=== PATIENT | male | born 1955 | race African-American/Black ===

== ENCOUNTER 2021-02-18 10:55 | Inpatient (IN) | payer OTHER ==
[~2021-02-18] VITALS: Ht 165.1 cm; Wt 108.9 kg
[2021-02-18 10:56] VITALS: BP 130/93
[2021-02-18 11:18] LABS: HEMATOCRIT 37.7 % (42.0-52.0); HEMOGLOBIN 12.4 gm/dL (14.0-18.0); MCH 27.3 pg (26.0-34.0); MCHC 32.9 g/dL (28.0-37.0); MCV 83.1 fL (80.0-100.0); PLATELET COUNT 220 thou/uL (150-400); RBC 4.54 mil/uL (4.50-6.00); RDW 16.6 % (10.5-14.5); WBC 9.9 thou/uL (4.0-11.0)
[2021-02-18 11:52] LABS: ABSOLUTE NEUTROPHILS 7.6 thou/uL (1.4-8.2); PLATELET ESTIMATE NORMAL
--- NOTE | 2021-02-18 12:24 | EKG ---
[place] [address] [facility] [place] [address] ELECTROCARDIOGRAM REPORT Name: HERNANDO GUPTA [id number] Admission: 02/18/21 Attend Phys: Discharge: Date of : 55 Report #: [id number] [facility] ED Test Date: 2021-02-18 Test Time: 11:12:30 Pat Name: HERNANDO GUPTA Department: Room: Gender: M Claim Administrator: JUANCARLOS : 1955 Requested By: Jenna Mabry Order Number: [id number] MD: Shubham Carlos Measurements Intervals [place]ock Rate: 84 P: 51 NC: 152 QRS: -31 QRSD: 110 T: 67 QT: 404 QTc: 478 Interpretive Statements Sinus rhythm Abnormal R-wave progression, late transition Borderline prolonged QT interval No previous ECG available for comparison Electronically Signed On 02-18-2021 12:24:48 CDT by Shubham Carlos [email or web address] <ELECTRONICALLY SIGNED> By: Shubham Carlos MD, [facility] 02/18/21 1224 1112 1112 Shubham Carlos MD, FACC /EPI
[2021-02-18 15:01] LABS: CALCIUM 8.6 mg/dL (8.5-10.1)
[2021-02-18 15:11] LABS: ALBUMIN 3.2 g/dL (3.4-5.0); MAGNESIUM 1.8 mg/dL (1.8-2.4); TOTAL PROTEIN 8.6 g/dL (6.4-8.2); TROPONIN-I 0.14 ng/mL (<0.06)
[2021-02-18 15:23] LABS: POTASSIUM 5.7 mmol/L (3.5-5.1)
[2021-02-18 15:25] LABS: PHOSPHORUS 4.2 mg/dL (2.5-4.9); TOTAL BILIRUBIN 1.4 mg/dL (0.2-1.0)
[2021-02-18 16:15] VITALS: BP 140/96
[2021-02-18 16:25] VITALS: BP 140/96
[2021-02-18 17:04] VITALS: BP 160/113
[2021-02-18] MEDS ORDERED: TYLENOL325 M1 PO ×2 (18:03→18:04)
[2021-02-18] MEDS ORDERED: PROAIR HFA8.5 GM INH (18:04)
[2021-02-18] MEDS ORDERED: VITAMIN C500 M2 PO (18:05)
[2021-02-18] MEDS ORDERED: LIPITOR40 MG PO (18:06)
[2021-02-18] MEDS ORDERED: CHILDREN'S ASPI81 M1 PO (18:06)
[2021-02-18] MEDS ORDERED: MYNEPHRON CAPSUL1 MG PO (18:08)
[2021-02-18] MEDS ORDERED: VITAMIN D325 MC1 PO (18:10)
[2021-02-18] MEDS ORDERED: NEURONTIN 300M300 M2 PO (18:11)
[2021-02-18] MEDS ORDERED: FLONASE 0.05%50 MCG INH (18:11)
[2021-02-18] MEDS ORDERED: IPRATROPIU0.2 MG/1 M INH (18:13)
[2021-02-18] MEDS ORDERED: MIDODRINE HCL10 MG PO (18:15)
[2021-02-18] MEDS ORDERED: OMEPRAZOLE 20 M20 M1 PO (18:17)
[2021-02-18] MEDS ORDERED: NITROSTAT0.4 M1 SUBLING (18:17)
[2021-02-18] MEDS ORDERED: ZOFRAN4 MG PO (18:18)
[2021-02-18] MEDS ORDERED: MIRALAX17 G1 PO (18:18)
[2021-02-18] MEDS ORDERED: SENNA8.6 MG PO (18:19)
[2021-02-18] MEDS ORDERED: RAYOS5 MG PO (18:19)
[2021-02-18] MEDS ORDERED: RENVELA800 MG PO (18:20)
[2021-02-18] MEDS ORDERED: VESICARE 5 MG TA5 M1 PO (18:21)
[2021-02-18] MEDS ORDERED: ZINC50 MG PO (18:22)
[2021-02-18] MEDS ORDERED: TIZANIDINE HCL4 M2 PO (18:22)
--- NOTE | 2021-02-18 19:00 | NUR ---
PATIENT ADMIT FROM ED AT 1653. PANTS, SHIRT, JACKET, SHOES, CELL PHONE, AND WALLET IN DUFFLE BAG. SISTER, MANUELA, CALLED BY PATIENT ON CELL PHONE. THIS NURSE UPDATED THE SISTER ABOUT THE ADMISSION. PATIENT IS VERY POOR HISTORIAN, MED REC AND ADMISSION HISTORY COMPLETED FROM DIALYSIS CENTER PAPERWORK.
[2021-02-18 19:39] VITALS: BP 152/87
[2021-02-19 05:24] LABS: ALBUMIN 3.1 g/dL (3.4-5.0); ANION GAP 11 mmol/L (7-16); BUN 32 mg/dL (7-18); CALCIUM 8.8 mg/dL (8.5-10.1); CHLORIDE 94 mmol/L (98-107); CHOLESTEROL 114 mg/dL (<200); CO2 28 mmol/L (21-32); GLUCOSE 91 mg/dL (74-106); HDL CHOLESTEROL 48 mg/dL (>40); LDL CHOLESTEROL 43 mg/dL (<100); MAGNESIUM 1.7 mg/dL (1.8-2.4); PHOSPHORUS 4.4 mg/dL (2.5-4.9); SODIUM 133 mmol/L (136-145); TC:HDL 2.4 Ratio (Not establshd); TRIGLYCERIDE 116 mg/dL (<150); TROPONIN-I 0.44 ng/mL (<0.06); VLDL 23 mg/dL (<40)
[2021-02-19 05:27] LABS: CREATININE 7.6 mg/dL (0.7-1.3); POTASSIUM 4.4 mmol/L (3.5-5.1); SERUM ASSESSMENT Clear
--- NOTE | 2021-02-19 05:28 | NUR ---
ASSUME CARE 1900. PT/VITALS STABLE. INTERMITTENT LEFT KNWW PAIN. POOR TOLERANCE TO ACTIVITY. WOULD BENEFIT FROM PT/OT EVAL AND TX. ST NOTED ON MONITOR. NO DISTRESS NOTED. VITALS STABLE/ PT NPO SINCE MIDNIGHT FOR BERTHA RECINOS. PLAN IS FOR NEPHROLOGY AND CARDIOLOGY TO FOLLOW WITH PT. WOULD CONTINUE WITH POC PER CARDIO AND NEPHRO.
[2021-02-19 05:31] VITALS: BP 120/72
[2021-02-19 07:43] VITALS: BP 152/98
[2021-02-19 11:08] VITALS: BP 120/84
--- NOTE | 2021-02-19 11:28 | 2DMMODE ---
[facility] [place] [address] 2 D/M-MODE ECHOCARDIOGRAM Name: CANDY VILLAGOMEZ Room #: 207-P ADM IN M.R.#: [id number] Admission: 02/18/21 Attend Phys: Vitaliy Knutson MD Discharge: Date of : 55 Report #: [id number] THIS REPORT FOR: cc: Angélica Mccloud MD, Ramilo MD Lammoglia, Francisco J. MD ~ APPROVED REPORT Study performed: 02/19/2021 10:29:39 EXAM: Comprehensive 2D, Doppler, and color-flow Echocardiogram Patient Location: Bedside Room #: 207 Status: routine BSA: 2.17 HR: 100 bpm BP: 152/98 mmHg Rhythm: Tachy/PVCs Other Information Study Quality: Good Technically limited study due to heavy snoring, morbid obesity. Indications Chest pain, NSTEMI. Hx: CVA, ESRD, HTN, HLP, DM. 2D Dimensions RVDd: 29.00 mm IVSd: 15.00 (7-11mm) LVOT Diam: 21.00 (18-24mm) LVDd: 46.00 mm PWd: 13.00 (7-11mm) Ascending Ao: 37.00 (22-36mm) LVDs: 32.00 (25-40mm) Left Atrium: 37.00 (27-40mm) Aortic Root: 35.00 mm Volumes Left Atrial Volume (Systole) Single Plane 4CH: 53.92 mL Single Plane 2CH: 49.19 mL Aortic Valve AoV Peak Ascencion.: 3.13 m/s AO Peak Gr.: 39.16 mmHg LVOT Max P.08 mmHg [facility] [address] [place] [address] 2 D/M-MODE ECHOCARDIOGRAM Name: CANDY VILLAGOMEZ Room #: 207-P ADM IN M.R.#: [id number] Admission: 02/18/21 Attend Phys: Vitaliy Knutson MD Discharge: Date of : 55 Report #: [id number] AO Mean Gr.: 25.12 mmHg AO V2 Mean: 2.41 m/s LVOT Max V: 1.13 m/s AO V2 VTI: 50.03 cm CARINA Vmax: 1.24 cm2 Mitral Valve E/A Ratio: 0.6 MV Decel. Time: 162.84 ms MV E Max Ascencion.: 0.77 m/s MV A Ascencion.: 1.28 m/s MV PHT: 47.22 ms IVRT: 71.51 ms Pulmonary Valve PV Peak Ascencion.: 1.21 m/s PV Peak Gr.: 5.90 mmHg Tricuspid Valve TR Peak Ascencion.: 2.38 m/s TR Peak Gr.: 23.00 mmHg Left Ventricle The left ventricle is normal size. There is normal LV segmental wall motion. Moderate concentric left ventricular hypertrophy. Left ventricular systolic function is normal. LVEF is 60-65%. Mild diastolic dysfunction is present. Right Ventricle The right ventricle is normal size. The right ventricular systolic function is normal. Atria The left atrium size is normal. The right atrium size is normal. Aortic Valve The aortic valve is normal in structure. Leaflets are moderately calcified. Trace to mild aortic regurgitation. There is moderate valvular aortic stenosis. Calculated aortic valve area is 1.2 cm2 with maximum pressure gradient of 39 mmHg and mean pressure gradient of 25 mmHg. Mitral Valve Mitral valve leaflets are mildly thickened. There is no mitral valve regurgitation noted. No evidence of mitral valve stenosis. Tricuspid Valve [facility] [address] [place] [address] 2 D/M-MODE ECHOCARDIOGRAM Name: CANDY VILLAGOMEZ Room #: 207-P ADM IN M.R.#: [id number] Admission: 02/18/21 Attend Phys: Vitaliy Knutson MD Discharge: Date of : 55 Report #: [id number] The tricuspid valve is normal in structure. Trace tricuspid regurgitation. Estimated PAP is 23mmHg plus the RA pressure. Pulmonic Valve The pulmonary valve is normal in structure. Trace pulmonic regurgitation. Great Vessels The aortic root is normal in size. The ascending aorta is normal in size. IVC is not well visualized. Pericardium There is no pericardial effusion. <Conclusion> The left ventricle is normal size. Moderate concentric left ventricular hypertrophy. LVEF is 60-65%. The aortic valve is normal in structure. Leaflets are moderately calcified. Trace to mild aortic regurgitation. There is moderate valvular aortic stenosis. Calculated aortic valve area is 1.2 cm2 with maximum pressure gradient of 39 mmHg and mean pressure gradient of 25 mmHg. Mitral valve leaflets are mildly thickened. There is no mitral valve regurgitation noted. The tricuspid valve is normal in structure. Trace tricuspid regurgitation. Estimated PAP is 23mmHg plus the RA pressure. The pulmonary valve is normal in structure. Trace pulmonic regurgitation. There is no pericardial effusion. <ELECTRONICALLY SIGNED> By: Agusto Grossman MD 02/19/21 1128 1128 1128 Agusto Grossman MD /INF
--- NOTE | 2021-02-19 14:11 | NUR ---
Case opened to follow for dc planning. Piccolo Mechanic visited with the pt at bedside and spoke with the admissions liason at [facility]. 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 He also has ESRD and dialyzes at [facility]. He was sent from the clinic to the ER for chest pain and NSTEMI. PLans for ccath lab tomorrow and dialysis discussed with the care team. The pt and his sister Randi are aware and anticipating dc back to ltc at [facility] over the weekend. [facility] is holding his bed and can accept him when medically stable. The pt [place] medicaid for ins but they are checking to see if he now has Medicare since he is 66 yrs old and disabled more than 2yrs. He is up to the w/c at the facility and able to move about in his w/c. Cm role introduced to the pt and his sister Alanna via phone. Will follow.
[2021-02-19] MEDS ORDERED: CVS PAIN RELIE TOP (14:33)
[2021-02-19] MEDS ORDERED: AAA-MED REC COMPLETE PO (14:43)
[2021-02-19 15:14] VITALS: BP 103/53
[2021-02-19 21:03] VITALS: BP 109/64
--- NOTE | 2021-02-20 05:24 | NUR ---
SLEPT MOST OF SHIFT. TURNS SELF WITHOUT ASSIST. PLAN FOR AM HEART CATH AND DIALYSIS IN AFTERNOON. NO PRESENT COMPLAINTS OF PAIN. WORKING ON GOALS AND PLAN OF CARE FOR NOC. CONTINUE TO ASSES NEEDED.
[2021-02-20 05:25] VITALS: BP 133/72
[2021-02-20 10:35] VITALS: BP 108/63
--- NOTE | 2021-02-20 12:24 | NUR ---
Pt having heart cath and dialysis today. 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 Should the pt be dc ready this weekend, unit Rn to call their liason Sabrina at [phone] to arrange w/c van transport. Dc instructions and summary will need to be faxed to [phone] and a chart copy sent with the pt. His sister Alanna will need a notification call. His dialysis clinic,[facility] needs a call and dc summary faxed: [phone] and fax [phone]
[2021-02-20 12:32] VITALS: BP 108/63
[2021-02-20 16:19] VITALS: BP 114/81
--- NOTE | 2021-02-20 16:41 | NUR ---
ASSUMED CARE SHIFT CHANGE. ASSESSMENTS CHARTED.MEDS GIVEN. VSS. HEART CATH THIS SHIFT, DIAGNOSTIC, NO FINDINGS. R JOHAN CDI. NO HEMATOMA. DIALYSIS THIS SHIFT TOLERATING WELL. PLAN FOR RETURN TO [facility] ONCE MEDICALLY STABLE. CONTINUING POC. WILL PASS ON REPORT TO NOC RN.
--- NOTE | 2021-02-20 17:24 | CATHLAB ---
[facility] [place] [address] INVASIVE PROCEDURE REPORT Name: CANDY VILLAGOMEZ Room #: 207-P ADM IN M.R.#: [id number] Admission: 02/18/21 Attend Phys: Vitaliy Knutson MD Discharge: Date of : 55 Report #: [id number] THIS REPORT FOR: cc: Angélica Mccloud MD, Ramilo MD Mancuso, Gerald M. MD [facility] ~ APPROVED REPORT Study performed: 02/20/2021 07:34:06 Patient Details Patient Status: In-Patient Room #: The patient is a 66 year-old male Event Personnel James Kamara RN RN, Nakia Wilks RTR, FREDIS Juarez, Marlee Rust, Ian Garza Bullet Swaging Machine Adjuster Procedures Performed Art Access - R femoral artery* Bridger Access - R femoral vein Right and Left Heart Cath w/or w/o Coronarie [id number] RL [address]145 Initial Mod Sed Same Phys/QHP Gr5y [id number] 69349 Mod Sed Same Phys/QHP Ea [id number] Hemostasis w/ Mynx Indication Chest pain Procedure Narrative The Right Groin^ was infiltrated with 1% Lidocaine subcutaneous anesthesia. The patient tolerated the procedure well and there were no complications associated with the procedure. Intraoperative Conscious Sedation Fentanyl mcg Versed mg Fluoro Time: 5.10 minutes Dose: DAP 66055.10 cGycm2 Contrast Type and Amount: Omnipaque 130 ml Hemodynamics The right atrial mean pressure is 7 mmHg. The right ventricular pressure is 40/-1 mmHg. The pulmonary artery pressure is 26/5 mmHg with a mean of 15 mmHg. The mean pulmonary capillary wedge pressure is 11 mmHg. The aortic pressure is 120/57 mmHg with a mean of 87 [facility] [address] [place] [address] INVASIVE PROCEDURE REPORT Name: CANDY VILLAGOMEZ Room #: [facility] ADM IN M.R.#: [id number] Admission: 02/18/21 Attend Phys: Vitaliy Knutson MD Discharge: Date of : 55 Report #: [id number] mmHg. The left ventricular pressure is 123/5 mmHg with a mean of mmHg. The left ventricular end diastolic pressure is 16 mmHg. The cardiac output using thermo method is 6.05 L/min. The cardiac index using thermo method is 2.83 L/min/m2. Conclusion #1. Successful right heart catheterization with cardiac output by thermodilution. See above hemodynamics. #2 hyperdynamic LV function normal ventricular size EF 65%. #3 mild disease left main long giving rise to LAD and circumflex. #4 LAD extends short of the apex with mild irregularities no occlusive disease. #5 nondominant circumflex but moderate in distribution. The proximal circumflex has a heavy area of calcification which may represent a prior stent. Widely patent #6 large dominant right coronary artery with minimal irregularity extensive distribution to the inferior apical wall and inferior lateral wall. Recommendations and plan: Continue aggressive risk factor modification. Patient appears to be euvolemic currently undergoing dialysis. No evidence for significant occlusive disease no intervention recommended. <ELECTRONICALLY SIGNED> By: Ian Garza MD, FACC 02/20/21 172 22 22 Ian Garza MD, FACC /INF
[2021-02-20 20:19] VITALS: BP 136/79
[2021-02-21 04:16] VITALS: BP 98/59
[2021-02-21 04:22] LABS: CALCIUM 8.8 mg/dL (8.5-10.1); CREATININE 8.4 mg/dL (0.7-1.3); MAGNESIUM 2.1 mg/dL (1.8-2.4); MCH 26.5 pg (26.0-34.0); MCHC 31.5 g/dL (28.0-37.0); MCV 83.9 fL (80.0-100.0); POTASSIUM 4.5 mmol/L (3.5-5.1); RBC 4.53 mil/uL (4.50-6.00); RDW 16.9 % (10.5-14.5); WBC 8.5 thou/uL (4.0-11.0)
[2021-02-21 07:25] VITALS: BP 101/64
[2021-02-21 07:55] VITALS: BP 101/64
[2021-02-21 11:02] VITALS: BP 90/57
[2021-02-21] MEDS ORDERED: METOPROLOL TART25 MG PO (11:12)
[2021-02-21 11:42] LABS: GLYCOHEMOGLOBIN (HGB A1C) 5.3
[2021-02-21 11:55] VITALS: BP 90/57
--- NOTE | 2021-02-21 13:47 | NUR ---
PT CARE ASSUMED AT 0700. ASSESSMENTS CHARTED. MEDICATIONS CHARTED. LAC IV. SINUS RHYTHM. ANURIC. PT DID NOT KNOW THE TIME OF HIS LAST BM. [facility]; DIALYSIS MWF, 1.5 L REMOVED. PT DISCHARGED TO [facility] AT 1330. DISCHARGE PAPERWORK AND CHART COPY TRAVELED WITH NEUROLOGIST. IV D/C'D. TELEMETRY D/C'D.
== END 2021-02-21 13:30 | DRG 280 ==
LOC: ER 10:55 → EROBS 15:45 → 2N 15:45
PROVIDERS: Internal Medicine; Nurse Practitioner; Physician Assistant; ADMIT Internal Medicine; ATTEND Internal Medicine
PROC: B2111ZZ Fluoroscopy of Multiple Coronary Arteries using Low Osmolar Contrast (ICD-10-PCS; principal; 2021-02-20)
PROC: 5A1D70Z Performance of Urinary Filtration, Intermittent, Less than 6 Hours Per Day (ICD-10-PCS; principal; 2021-02-20)
PROC: 4A023N8 Measurement of Cardiac Sampling and Pressure, Bilateral, Percutaneous Approach (ICD-10-PCS; principal; 2021-02-20)
DX: I21.4 Non-ST elevation (NSTEMI) myocardial infarction (principal); N18.6 End stage renal disease; G93.41 Metabolic encephalopathy; N25.81 Secondary hyperparathyroidism of renal origin; I69.354 Hemiplegia and hemiparesis following cerebral infarction affecting left non-dominant side; I12.0 Hypertensive chronic kidney disease with stage 5 chronic kidney disease or end stage renal disease; R25.2 Cramp and spasm; E78.5 Hyperlipidemia, unspecified; E11.42 Type 2 diabetes mellitus with diabetic polyneuropathy; D63.8 Anemia in other chronic diseases classified elsewhere; E11.22 Type 2 diabetes mellitus with diabetic chronic kidney disease; E66.9 Obesity, unspecified; M25.562 Pain in left knee; E88.89 Other specified metabolic disorders; I95.89 Other hypotension; Z68.39 Body mass index [BMI] 39.0-39.9, adult; Z79.82 Long term (current) use of aspirin; Z79.899 Other long term (current) drug therapy
CPT/HCPCS: 10081; 32100